=== PATIENT | male | born 1965 | race Hispanic/Latino ===

== ENCOUNTER 2019-09-25 00:44 | Emergency (ER) | payer OTHER ==
[~2019-09-25] VITALS: Ht 162.6 cm; Wt 70.3 kg
[2019-09-25] MEDS ORDERED: DIPHENHYDRAMINE HCL INJ 50 MG/ML VIAL IV ONE (01:15)
[2019-09-25] MEDS ORDERED: METHYLPREDNISOLONE SOD SUCC 125 MG/2ML VIAL IV ONE (01:15)
[2019-09-25] MEDS ORDERED: SODIUM CHLORIDE 0.9% 1000ML 1,000 ML IV ONE (01:15)
[2019-09-25] MEDS ORDERED: FAMOTIDINE 20 MG/2 ML VIAL IV STA (01:15)
--- NOTE | 2019-09-25 01:45 | Emergency Department Note ---
History of Present Illnes History of Present Illness Chief Complaint: Skin Rash or Abscess History of Present Illness This is a 54 year old male PRESENTS TO THE ER C/O ALLERGIC REACTION AFTER EATING CHICKEN WINGS ONSET X1 [employer]; PT STATES HE HAS AN ALLERGY TO SHELLFISH; PT DENIES SOB, CP OR DIFFICULTY SWALLOWING; HIVES NOTED TO GENERALIZED BODY; NO TONGUE SWELLING NOTED; RESP EVEN/UNLABORED;.STATES HE THINKS HIS FOOD MAY HAVE BEEN CONTAMINATED WITH SHELLFISH SINCE PLACE HE WAS EATING ALSO SERVES SHELLFISH Historian: Patient Arrival Mode: Car Onset (how long ago): hour(s) (1) Location: GENERALIZED Quality: RASH, ITCHING Radiation: Reports non-radiation Severity: moderate Onset quality: sudden Duration (how long): hour(s) (1) Timing of current episode: constant Progression: worsening Chronicity: recurrent Context: Denies recent illness, Denies recent surgery Relieving factors: none Exacerbating factors: other (POSSIBLE SHELLFISH EXPOSURE) Associated symptoms: Reports denies other symptoms Treatments prior to arrival: none Past Medical/Family History Physician Review I have reviewed the patient's past medical and family history. Any updates have been documented here. Past Medical History Recent Fever: No Clinical Suspicion of Infectio: No New/Unexplained Change in Ment: No Past Medical History: None Other Medical History: ALLERGIC REACTION TO SHELLFISH Past Surgical History: None, T&A Social History Smoking Cessation: Never Smoker Alcohol Use: Occasional Any Illegal Drug Use: No Physically hurt or threatened: No Family History Family history of heart diseas: No Review of Systems Review of Systems Constitutional: Reports no symptoms EENTM: Reports no symptoms Cardiovascular: Reports no symptoms Respiratory: Reports no symptoms Gastrointestinal: Reports no symptoms Genitourinary: Reports no symptoms Musculoskeletal: Reports no symptoms Integumentary: Reports as per HPI Neurological: Reports no symptoms Psychological: Reports no symptoms Endocrine: Reports no symptoms Hematological/Lymphatic: Reports no symptoms Physical Exam Related Data Allergies: Coded Allergies: shellfish derived (Verified Allergy, Intermediate, 09/25/19) Triage Vital Signs Vital Signs Date Time Temp Pulse Resp B/P (MAP) Pulse Ox O2 Delivery O2 Flow Rate FiO2 09/25/19 01:11 98.0 79 20 96/72 97 Room Air Vital signs reviewed: Yes Physical Exam CONSTITUTIONAL Constitutional: Present well-developed, Present well-nourished HENT HENT: Present normocephalic, Present atraumatic, Present oropharynx clear/moist, Present nose normal, Present other (NO ANGIOEDEMA PRESENT) HENT L/R: Present left ext ear normal, Present right ext ear normal EYES Eyes: Reports PERRL, Reports conjunctivae normal NECK Neck: Present ROM normal PULMONARY Pulmonary: Present effort normal, Present breath sounds normal CARDIOVASCULAR Cardiovascular: Present regular rhythm, Present heart sounds normal, Present capillary refill normal, Present normal rate GASTROINTESTINAL Abdominal: Present soft, Present nontender, Present bowel sounds normal GENITOURINARY Genitourinary: Present exam deferred SKIN Skin: Present warm, Present dry, Present rash (GENERALIZED URTICARIA.) MUSCULOSKELETAL Musculoskeletal: Present ROM normal NEUROLOGICAL Neurological: Present alert, Present oriented x 3, Present no gross motor or sensory deficits PSYCHOLOGICAL Psychological: Present mood/affect normal, Present judgement normal Results Laboratory Laboratory Laboratory Tests Test 09/25/19 01:21 White Blood Count 6.14 x10e3/uL (4.8-10.8) Red Blood Count 5.11 x10e6/uL (4.3-5.7) Hemoglobin 15.0 g/dL (14.0-18.0) Hematocrit 46.0 % (38.2-49.6) Mean Corpuscular Volume 90.0 fL (81-99) Mean Corpuscular Hemoglobin 29.4 pg (28-32) Mean Corpuscular Hemoglobin Concent 32.6 g/dL (31-35) Red Cell Distribution Width 12.6 % (11.7-14.4) Platelet Count 282 x10e3/uL (140-360) Neutrophils (%) (Auto) 53.1 % (38.7-80.0) Lymphocytes (%) (Auto) 35.8 % (18.0-39.1) Monocytes (%) (Auto) 6.4 % (4.4-11.3) Eosinophils (%) (Auto) 3.4 % (0.0-6.0) Basophils (%) (Auto) 0.5 % (0.0-1.0) Neutrophils # (Auto) 3.3 (2.1-6.9) Lymphocytes # (Auto) 2.2 (1.0-3.2) Monocytes # (Auto) 0.4 (0.2-0.8) Eosinophils # (Auto) 0.2 (0.0-0.4) Basophils # (Auto) 0.0 (0.0-0.1) Absolute Immature Granulocyte (auto 0.05 x10e3/uL (0-0.1) Sodium Level 138 mmol/L (136-145) Potassium Level 3.6 mmol/L (3.5-5.1) Chloride Level 100 mmol/L (98-107) Carbon Dioxide Level 26 mmol/L (22-29) Anion Gap 15.6 mmol/L (8-16) Blood Urea Nitrogen 21 mg/dL (7-26) Creatinine 1.53 mg/dL (0.72-1.25) Estimat Glomerular Filtration Rate 48 ML/MIN (60-) BUN/Creatinine Ratio 14 (6-25) Glucose Level 129 mg/dL (74-118) Calcium Level 9.3 mg/dL (8.4-10.2) Lab results reviewed: Yes Assessment & Plan Medical Decision Making MDM PT WITH ALLERGIC REACTION, PRESENTS WITH GENERALIZED URTICARIA 1 LITER NS IV BOLUS ORDERED SOLU-MEDROL 125 MG IV ORDERED BENADRYL 25 MG IV ORDERED PEPCID 20 MG IV ORDERED pt discharged home with prescription for medrol dose pack take as directed over the counter benadryl 25 mg po q 4 to 6 hours prn rash or itching over the counter pepcid 1 po bid for next 7 days Reassessment Reassessment time: 02:37 Reassessment rash has resolved. Assessment & Plan Final Impression: (1) Allergic reaction (2) Urticaria Depart Disposition: HOME, SELF-CARE Last Vital Signs Date Time Temp Pulse Resp B/P (MAP) Pulse Ox O2 Delivery O2 Flow Rate FiO2 09/25/19 01:11 98.0 79 20 96/72 97 Room Air Medications in the ED Sodium Chloride 1,000 ml @ 999 mls/hr Q1H1M ONCE IV ; Start 09/25/19 at 01:15; Stop 09/25/19 at 02:15 Methylprednisolone Sodium Succinate 125 mg ONCE ONCE IV ; Start 09/25/19 at 01:15; Stop 09/25/19 at 01:17; Status DC Famotidine 20 mg NOW STAT IV ; Start 09/25/19 at 01:15; Stop 09/25/19 at 01:31; Status DC Diphenhydramine HCl 25 mg NOW ONCE IV ; Start 09/25/19 at 01:15; Stop 09/25/19 at 01:31; Status DC PAOLO BOSTON MD Sep 25, 2019 01:45
[2019-09-25 01:54] LABS: BASOPHILS % 0.5 % (0.0-1.0); EOSINOPHILS # (AUTO) 0.2 (0.0-0.4); EOSINOPHILS % 3.4 % (0.0-6.0); LYMPHOCYTES # (AUTO) 2.2 (1.0-3.2); LYMPHOCYTES % 35.8 % (18.0-39.1); MEAN CORPUSCULAR HEMOGLOBIN 29.4 pg (28-32); MEAN CORPUSCULAR HGB CONC 32.6 g/dL (31-35); MONOCYTES # (AUTO) 0.4 (0.2-0.8); MONOCYTES % 6.4 % (4.4-11.3); NEUTROPHILS # (AUTO) 3.3 (2.1-6.9); NEUTROPHILS % 53.1 % (38.7-80.0); PLATELET COUNT 282 x10e3/uL (140-360); RED BLOOD COUNT 5.11 x10e6/uL (4.3-5.7); RED CELL DISTRIBUTION WIDTH 12.6 % (11.7-14.4)
[2019-09-25 02:11] LABS: ANION GAP 15.6 mmol/L (8-16); CALCIUM 9.3 mg/dL (8.4-10.2); CREATININE, SERUM 1.53 mg/dL (0.72-1.25); POTASSIUM 3.6 mmol/L (3.5-5.1)
== END 2019-09-25 03:12 | disposition home or self-care (01) ==
LOC: ER 01:18
DX: L50.9 Urticaria, unspecified (principal); T78.40XA Allergy, unspecified, initial encounter
CPT/HCPCS: 36415; 80048; 85025; 99283; J1200; J2930; J7030